=== PATIENT | female | born 1980 | race Caucasian/White ===

== ENCOUNTER 2020-11-23 12:27 | Emergency (ER) | payer OTHER ==
--- NOTE | 2020-11-23 14:15 | ED Physician Documentation ---
History of Present Illness - Stated complaint Stated Complaint: MED REFILL - Chief complaint Chief Complaint: General - Additonal information Additional information: 40-year-old female presents the emergency department requesting a refill of her clonazepam. She reports that she takes 2 mg tablets twice daily as management for her anxiety and she has been on this medication for years. She reports that it was last filled on 15 November. She states she was out shopping yesterday and when she came home she found that the bottle was missing from her purse. She did call her primary care office who told her to come to the ER for a refill. P atient denies shakes or tremors. She is anxious. She has no thoughts of SI. Review of Systems Constitutional: denies: Fever, Chills Eyes: reports: Reviewed and negative Ears: reports: Reviewed and negative Nose: reports: Reviewed and negative Throat: reports: Reviewed and negative Cardiac: reports: Reviewed and negative Respiratory: reports: Reviewed and negative GI: reports: Reviewed and negative : reports: Reviewed and negative Skin: reports: Reviewed and negative Musculoskeletal: reports: Reviewed and negative Neurologic: reports: Reviewed and negative Psychiatric: reports: Anxiety PD PAST MEDICAL HISTORY - Past Medical History Past Medical History: Yes Cardiovascular: None Respiratory: None Endocrine/Autoimmune: None GI: None ER PHYSICIAN: None : None HEENT: None Psych: Depression, Anxiety Musculoskeletal: Chronic back pain Derm: None - Past Surgical History Past Surgical History: Yes Ortho: Spine surgery /ER PHYSICIAN: Tubal ligation HEENT: Tonsil/Adenoidectomy - Present Medications Home Medications: Ambulatory Orders Medication Instructions Recorded Confirmed Amoxicillin 500 mg PO TID #30 capsule 10/11/12 HYDROcod/ACETAM 5/325 [Vicodin 1 - 2 ea PO Q6H PRN #15 tablet 10/11/12 5/325] Naproxen [Naprosyn] 500 mg PO BID PRN 10/11/12 10/11/12 HYDROcod/ACETAM 5/325 [Vicodin 1 - 2 ea PO Q6H PRN #15 tablet 11/15/12 5/325] Penicillin Vk 500 mg PO Q6H 10 Days tablet 11/15/12 HYDROcod/ACETAM 5/325 [Vicodin 1 - 2 ea PO Q6H PRN #15 tablet 11/29/12 5/325] clonazePAM [Clonazepam] 1 mg PO BID #15 11/23/20 - Allergies Allergies/Adverse Reactions: Allergies Allergy/AdvReac Type Severity Reaction Status Date / Time No Known Drug Allergies Allergy Verified 11/23/20 12:33 - Social History Does the pt smoke?: No Smoking Status: Never smoker Does the pt drink ETOH?: No Does the pt have substance abuse?: No - Immunizations Immunizations are current?: Yes - POLST Patient has POLST: No PD ED PE NORMAL - General General: Alert and oriented X 3, No acute distress - HEENT HEENT: PERRL - Cardiac Cardiac: RRR, No murmur - Respiratory Respiratory: Clear bilaterally - Abdomen Abdomen: Normal bowel sounds, Soft, Non tender, Non distended - Back Back: No spinal TTP Results - Vitals Vitals: Vital Signs - 24 hr 11/23/20 12:33 Temperature 36.5 C Heart Rate 78 Respiratory 16 Rate Blood Pressure 120/82 H O2 Saturation 98 Oxygen O2 Source Room air PD MEDICAL DECISION MAKING - ED course Complexity details: reviewed results, re-evaluated patient, d/w patient ED course: 40-year-old female presents the emergency department requesting a refill of her clonazepam. She has been taking it twice daily for years as a management for her anxiety. She is also on buprenorphine. In review of her [facility] it does appear that she fills every month on time clonazepam 1 mg tablets 60. There are no additional refills and she seems very compliant. She has called her prescriber's office and they have declined to refill her benzodiazepine until next month as scheduled. Due to the risk of withdrawal I will prescribe her fifteen 1 mg tablets. I have advised her that if at any point she develops withdrawal she is to return immediately to the ER. I have also advised that she should take only 1 tablet instead of 2 twice a day. Departure - Departure Disposition: 01 Home, Self Care Clinical Impression: Medication refill, Benzodiazepine dependence Condition: Stable Record reviewed to determine appropriate education?: Yes Prescriptions: clonazePAM [Clonazepam] 1 mg PO BID #15 Comments: Delfina I am writing a very limited prescription for your clonazepam. I am writing for 15 tablets. 1 mg to be taken twice a day. Your long-term prescriber should refill your benzodiazepine. It does appear that you are using the medications as prescribed without requiring or requesting early refills. If at any point you develop shakes, have shortness of breath uncontrolled sweating or feel that you are going into withdrawal you must return immediately to the emergency department. Benzodiazepine withdrawal can be life-threatening
[2020-11-23 14:33] VITALS: BP 119/84
== END 2020-11-23 14:35 | disposition home or self-care (01) ==
LOC: ED 12:27
DX: F41.9 Anxiety disorder, unspecified (principal); F13.20 Sedative, hypnotic or anxiolytic dependence, uncomplicated; Z76.0 Encounter for issue of repeat prescription
CPT/HCPCS: 99282; 99283

== ENCOUNTER 2021-12-02 13:37 | Emergency (ER) | payer OTHER ==
[2021-12-02] MEDS ORDERED: tiZANidine 4 MG TABLET PO STA (15:15)
--- NOTE | 2021-12-02 15:25 | ED Physician Documentation ---
History of Present Illness - Stated complaint Stated Complaint: BACK SPASMS - Chief complaint Chief Complaint: Back Pain - History obtained from History obtained from: Patient - History of Present Illness Timing: Today Pain level max: 8 Pain level now: 8 - Additonal information Additional information: Patient is a 41-year-old female who presents to the emergency department complaining of back pain. She states she is normally on tizanidine but ran out last night. Here requesting a refill. Worse with movement, better with rest. She sees Dr. Ramu Church as her primary care provider. Review of Systems Constitutional: denies: Fever, Chills Respiratory: denies: Cough GI: denies: Nausea, Vomiting, Diarrhea : denies: Dysuria, Now EGA Skin: denies: Rash Musculoskeletal: reports: Back pain (Chronic and unchanged. No loss of bowel or bladder control. No numbness or tingling.). denies: Neck pain PD PAST MEDICAL HISTORY - Past Medical History Past Medical History: Yes Cardiovascular: None Respiratory: None Endocrine/Autoimmune: None GI: None SUGAR BOILER: None : None HEENT: None Psych: Depression, Anxiety Musculoskeletal: Chronic back pain Derm: None - Past Surgical History Past Surgical History: Yes Ortho: Spine surgery /SUGAR BOILER: Tubal ligation HEENT: Tonsil/Adenoidectomy - Present Medications Home Medications: Ambulatory Orders Medication Instructions Recorded Confirmed Amoxicillin 500 mg PO TID #30 capsule 10/11/12 HYDROcod/ACETAM 5/325 [Vicodin 1 - 2 ea PO Q6H PRN #15 tablet 10/11/12 5/325] Naproxen [Naprosyn] 500 mg PO BID PRN 10/11/12 10/11/12 HYDROcod/ACETAM 5/325 [Vicodin 1 - 2 ea PO Q6H PRN #15 tablet 11/15/12 5/325] Penicillin Vk 500 mg PO Q6H 10 Days tablet 11/15/12 HYDROcod/ACETAM 5/325 [Vicodin 1 - 2 ea PO Q6H PRN #15 tablet 11/29/12 5/325] clonazePAM [Clonazepam] 1 mg PO BID #15 11/23/20 tiZANidine [Zanaflex] 4 mg PO Q8H PRN #21 tablet 12/02/21 - Allergies Allergies/Adverse Reactions: Allergies Allergy/AdvReac Type Severity Reaction Status Date / Time No Known Drug Allergies Allergy Verified 12/02/21 13:48 - Social History Does the pt smoke?: No Smoking Status: Never smoker Does the pt drink ETOH?: No Does the pt have substance abuse?: No - Immunizations Immunizations are current?: Yes - POLST Patient has POLST: No PD ED PE NORMAL - Vitals Vital signs reviewed: Yes - General General: Alert and oriented X 3, Other (Anxious, tearful) - HEENT HEENT: PERRL, Moist mucous membranes - Neck Neck: Supple, no meningeal sign - Cardiac Cardiac: Other (Tachycardic) - Respiratory Respiratory: No respiratory distress, Clear bilaterally - Abdomen Abdomen: Soft, Non tender, Non distended - Back Back: No spinal TTP, Other (Paraspinal spasm bilateral lower lumbar. No midline tenderness to palpation and percussion.) - Derm Derm: Warm and dry - Extremities Extremities: No edema, No calf tenderness / cord - Neuro Neuro: Alert and oriented X 3, No motor deficit, No sensory deficit, Other (N ormal bilateral lower extremity patellar and ankle jerk reflexes. Normal great toe extension bilaterally. no saddle anesthesia) - Psych Psych: Normal mood, Normal affect Results - Vitals Vitals: Vital Signs - 24 hr 12/02/21 12/02/21 13:46 15:27 Temperature 36.4 C L 36.9 C Heart Rate 139 H 133 H Respiratory 18 16 Rate Blood Pressure 156/117 H 138/106 H O2 Saturation 100 96 Oxygen O2 Source Room air PD MEDICAL DECISION MAKING - ED course Complexity details: considered differential (No cauda equina, no spinal epidural abscess, no fracture, no aortic dissection or evidence of aneursym rupture), d/w patient ED course: 41-year-old female presents the emergency department with ongoing chronic back pain. Ran out of her tizanidine and is requesting a refill. She states she is normally tachycardic. Given a dose of tizanidine here and will prescribe her 1 weeks worth. WEAPONS DESIGNER was checked as well as her recent prescriptions. There is no recent tizanidine prescription and this would be about the time of her normal refill. Patient counseled regarding signs and symptoms for which I believe and urgent re-evaluation would be necessary. Patient with good understanding of and agreement to plan and is comfortable going home at this time This document was made in part using voice recognition software. While efforts are made to proofread this document, sound alike and grammatical errors may occur. Departure - Departure Disposition: 01 Home, Self Care Clinical Impression: Back spasm Condition: Good Instructions: ED Spasm Back No Trauma Follow-Up: Ramu Church MD [Primary Care Provider] - Within 1 week Prescriptions: tiZANidine [Zanaflex] 4 mg PO Q8H PRN #21 tablet PRN Reason: back spasm Comments: Your prescriptions were sent to [facility] in [place]. Please follow-up with your doctor this week for further refills. Return if you worsen. Discharge Date/Time: 12/02/21 15:33
[2021-12-02 15:28] VITALS: BP 138/106
== END 2021-12-02 15:33 | disposition home or self-care (01) ==
LOC: ED 13:37
DX: M62.830 Muscle spasm of back (principal)
CPT/HCPCS: 99282; 99283; A9270

== ENCOUNTER 2022-05-10 17:17 | Emergency (ER) | payer OTHER ==
[2022-05-10 17:26] VITALS: BP 147/102
--- NOTE | 2022-05-10 19:12 | ED Physician Documentation ---
History of Present Illness - Stated complaint Stated Complaint: ANXIETY, RACING HEART - Chief complaint Chief Complaint: MHE - History obtained from History obtained from: Patient - History of Present Illness Timing: Today Pain level max: 0 Pain level now: 0 - Additonal information Additional information: Patient is a 41-year-old female who presents to the emergency department longstanding history of anxiety. She is switching psychiatrists and ran out of her clonazepam today. She takes 1 mg by mouth twice daily. She states that she does not see her new psychiatrist until July. She is trying to get into see her regular doctor next week to talk about a bridge prescription. Patient denies any chest pain or shortness of breath. She feels very anxious. Denies any suicidal or homicidal ideation. Denies any possibility of . Review of Systems Constitutional: denies: Fever, Chills GI: denies: Vomiting Skin: denies: Rash Musculoskeletal: denies: Neck pain, Back pain Neurologic: denies: Headache PD PAST MEDICAL HISTORY - Past Medical History Cardiovascular: None Respiratory: None Endocrine/Autoimmune: None GI: None CROSS COUNTRY COACH: None : None HEENT: None Psych: Depression, Anxiety Musculoskeletal: Chronic back pain Derm: None - Past Surgical History Past Surgical History: Yes Ortho: Spine surgery /CROSS COUNTRY COACH: Tubal ligation HEENT: Tonsil/Adenoidectomy - Present Medications Home Medications: Ambulatory Orders Medication Instructions Recorded Confirmed Amoxicillin 500 mg PO TID #30 capsule 10/11/12 HYDROcod/ACETAM 5/325 [Vicodin 1 - 2 ea PO Q6H PRN #15 tablet 10/11/12 5/325] Naproxen [Naprosyn] 500 mg PO BID PRN 10/11/12 10/11/12 HYDROcod/ACETAM 5/325 [Vicodin 1 - 2 ea PO Q6H PRN #15 tablet 11/15/12 5/325] Penicillin Vk 500 mg PO Q6H 10 Days tablet 11/15/12 HYDROcod/ACETAM 5/325 [Vicodin 1 - 2 ea PO Q6H PRN #15 tablet 11/29/12 5/325] clonazePAM [Clonazepam] 1 mg PO BID #15 11/23/20 tiZANidine [Zanaflex] 4 mg PO Q8H PRN #21 tablet 12/02/21 clonazePAM [Klonopin] 1 mg PO BID PRN #14 tablet 05/10/22 - Allergies Allergies/Adverse Reactions: Allergies Allergy/AdvReac Type Severity Reaction Status Date / Time No Known Drug Allergies Allergy Verified 05/10/22 17:26 - Social History Does the pt smoke?: No Smoking Status: Never smoker Does the pt drink ETOH?: No Does the pt have substance abuse?: No - Immunizations Immunizations are current?: Yes - POLST Patient has POLST: No PD ED PE NORMAL - Vitals Vital signs reviewed: Yes - General General: Alert and oriented X 3, Well developed/nourished, Other (Anxious, tearful) - HEENT HEENT: PERRL, Moist mucous membranes, Pharynx benign - Neck Neck: Supple, no meningeal sign - Cardiac Cardiac: Other (Tachycardic) - Respiratory Respiratory: No respiratory distress, Clear bilaterally - Abdomen Abdomen: Soft, Non tender, Non distended - Derm Derm: Warm and dry - Neuro Neuro: Alert and oriented X 3 - Psych Psych: Normal mood, Normal affect Results - Vitals Vitals: Vital Signs - 24 hr 05/10/22 17:23 Temperature 36.4 C L Heart Rate 142 H Respiratory 16 Rate Blood Pressure 147/102 H O2 Saturation 96 Oxygen O2 Source Room air PD MEDICAL DECISION MAKING - ED course Complexity details: considered differential, d/w patient ED course: We will refill 1 weeks worth of the patient's clonazepam until she can talk to her doctor next week and determine a plan to get her through until she starts with her new psychiatrist. Patient declines any medication here and states she would like a prescription sent to [facility] in [place]. Patient is not suicidal or homicidal. Patient counseled regarding signs and symptoms for which I believe and urgent re-evaluation would be necessary. Patient with good understanding of and agreement to plan and is comfortable going home at this time This document was made in part using voice recognition software. While efforts are made to proofread this document, sound alike and grammatical errors may occur. 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 Please follow-up with your doctor next week to discuss a more permanent plan for your medications. Return if you worsen
== END 2022-05-10 19:22 | disposition home or self-care (01) ==
LOC: ED 17:17
DX: F41.9 Anxiety disorder, unspecified (principal); F13.930 Sedative, hypnotic or anxiolytic use, unspecified with withdrawal, uncomplicated
CPT/HCPCS: 93005; 99282; 99283

== ENCOUNTER 2022-08-05 16:43 | Emergency (ER) | payer OTHER ==
--- OUTSIDE RECORDS SUMMARY | 2022-08-05 17:17 | EXTERNAL MEDICAL SUMMARY RPT | Continuity of Care Document ---
:1980 Author Organization [facility] Address [address] [place] [address] Phone Care Team Providers Name Role Phone Unavailable Unavailable Unavailable Mirella Filleter Enp, Patsy Unavailable Unavailable Allergies No information. Encounters No information. Functional Status No information. Immunizations No information. Medications date description facility 2022-07-16 00:00 metoclopramide hcl All 2022-07-17 00:00 metoclopramide hcl All 2022-07-16 00:00 promethazine All 2022-07-17 00:00 promethazine All 2022-07-16 00:00 buprenorphine-naloxone All 2022-07-17 00:00 buprenorphine-naloxone All 2022-07-16 00:00 metoclopramide hcl All 2022-07-17 00:00 metoclopramide hcl All 2022-07-16 00:00 buprenorphine-naloxone All 2022-07-17 00:00 buprenorphine-naloxone All 2022-07-16 00:00 promethazine All 2022-07-17 00:00 promethazine All 2022-07-16 00:00 clonazepam All 2022-07-17 00:00 clonazepam All 2022-07-16 00:00 clonazepam All 2022-07-17 00:00 clonazepam All 2022-07-16 00:00 gabapentin All 2022-07-17 00:00 gabapentin All 2022-07-16 00:00 metoclopramide hcl All 2022-07-17 00:00 metoclopramide hcl All 2022-07-16 00:00 tizanidine All 2022-07-17 00:00 tizanidine All 2022-07-16 00:00 tizanidine All 2022-07-17 00:00 tizanidine All 2022-07-16 00:00 promethazine All 2022-07-17 00:00 promethazine All 2022-07-16 00:00 buprenorphine-naloxone All 2022-07-17 00:00 buprenorphine-naloxone All 2022-07-16 00:00 gabapentin All 2022-07-17 00:00 gabapentin All 2022-07-16 00:00 metoclopramide hcl All 2022-07-17 00:00 metoclopramide hcl All 2022-07-16 00:00 clonazepam All 2022-07-17 00:00 clonazepam All 2022-07-16 00:00 tizanidine All 2022-07-17 00:00 tizanidine All 2022-07-16 00:00 gabapentin All 2022-07-17 00:00 gabapentin All 2022-07-16 00:00 buprenorphine-naloxone All 2022-07-17 00:00 buprenorphine-naloxone All 2022-07-16 00:00 clonazepam All 2022-07-17 00:00 clonazepam All 2022-07-16 00:00 gabapentin All 2022-07-17 00:00 gabapentin All 2022-07-16 00:00 tizanidine All 2022-07-17 00:00 tizanidine All 2022-07-16 00:00 promethazine All 2022-07-17 00:00 promethazine All Problems date description facility 2022-07-16 00:00 Repeated prescription All 2022-07-16 00:00 Spasm of back muscles All 2022-07-16 00:00 Tachycardia All 2022-07-16 00:00 Hypertensive disorder All 2022-07-16 00:00 Unspecified essential hypertension All 2022-07-16 00:00 Other symptoms referable to back All 2022-07-16 00:00 Essential (primary) hypertension All 2022-07-16 00:00 Muscle spasm of back All 2022-07-16 00:00 Tachycardia, unspecified All 2022-07-16 00:00 Issue of repeat prescriptions All 2022-07-16 00:00 Encounter for issue of repeat prescript ion All Procedures date description facility 2022-07-16 00:00 Visit Code Hold All Results/Labs No information. Social History No information. Vital Signs date measurement value units 2022-07-16 00:00 BMI 31.63 kg/m2 2022-07-16 00:00 BP_diastolic 102 mmHg 2022-07-16 00:00 BP_systolic 138 mmHg 2022-07-16 00:00 heart_rate 112 /min 2022-07-16 00:00 height_metric 154.94 cm 2022-07-16 00:00 height_standard 61 in 2022-07-16 00:00 respiration_rate 18 /min 2022-07-16 00:00 temperature_metric 37.22 C 2022-07-16 00:00 temperature_standard 99 F 2022-07-16 00:00 weight_metric 75.66 kg 2022-07-16 00:00 weight_standard 166.8 lb
[2022-08-05 17:28] VITALS: BP 135/107
--- NOTE | 2022-08-05 17:34 | ED Physician Documentation ---
PD HPI BACK PAIN - Stated complaint Stated Complaint: BACK PX - Chief complaint Chief Complaint: Back Pain - History obtained from History obtained from: Patient - Additional information Additional information: 41-year-old woman with chronic back pain is in the process of switching doctors and has an appointment on Friday, but ran out of her tizanidine which she takes 4 mg 3 times a day. She has no increase in her chronic pain. No weakness, numbness, tingling, saddle anesthesia, fevers, possibility of , or IV drug use. PD PAST MEDICAL HISTORY - Past Medical History Cardiovascular: None Respiratory: None Endocrine/Autoimmune: None GI: None COURT INTERPRETER: None : None HEENT: None Psych: Depression, Anxiety Musculoskeletal: Chronic back pain Derm: None - Past Surgical History Past Surgical History: Yes Ortho: Spine surgery /COURT INTERPRETER: Tubal ligation HEENT: Tonsil/Adenoidectomy - Present Medications Home Medications: Ambulatory Orders Medication Instructions Recorded Confirmed Amoxicillin 500 mg PO TID #30 capsule 10/11/12 HYDROcod/ACETAM 5/325 [Vicodin 1 - 2 ea PO Q6H PRN #15 tablet 10/11/12 5/325] Naproxen [Naprosyn] 500 mg PO BID PRN 10/11/12 10/11/12 HYDROcod/ACETAM 5/325 [Vicodin 1 - 2 ea PO Q6H PRN #15 tablet 11/15/12 5/325] Penicillin Vk 500 mg PO Q6H 10 Days tablet 11/15/12 HYDROcod/ACETAM 5/325 [Vicodin 1 - 2 ea PO Q6H PRN #15 tablet 11/29/12 5/325] clonazePAM [Clonazepam] 1 mg PO BID #15 11/23/20 tiZANidine [Zanaflex] 4 mg PO Q8H PRN #21 tablet 12/02/21 clonazePAM [Klonopin] 1 mg PO BID PRN #14 tablet 05/10/22 tiZANidine [Zanaflex] 4 mg PO Q8H #15 tablet 08/05/22 - Allergies Allergies/Adverse Reactions: Allergies Allergy/AdvReac Type Severity Reaction Status Date / Time No Known Drug Allergies Allergy Verified 08/05/22 17:28 - Social History Does the pt smoke?: No Smoking Status: Never smoker Does the pt drink ETOH?: No Does the pt have substance abuse?: No - Immunizations Immunizations are current?: Yes - POLST Patient has POLST: No PD ED PE NORMAL - Vitals Vital signs reviewed: Yes - General General: Alert and oriented X 3, No acute distress - Back Back: No spinal TTP - Extremities Extremities: Other (The patient has equal and normal Achilles and patellar reflexes bilaterally. Normal sensation in all areas of the legs. Patient denies saddle anesthesia. Normal strength in flexion-extension at the ankles, knees, and flexion of the hips.) - Neuro Neuro: Alert and oriented X 3, Normal speech Results - Vitals Vitals: Vital Signs - 24 hr 08/05/22 17:24 Temperature 36.8 C Heart Rate 115 H Respiratory 16 Rate Blood Pressure 135/107 H O2 Saturation 98 Oxygen O2 Source Room air PD Medical Decision Making - ED course ED course: This patient has seemingly uncomplicated musculoskeletal back pain. The patient has no "red flags." Specifically denies IV drug use, fevers, incontinence, saddle anesthesia. Spinal epidural abscess was considered, given that the patient has no fever, is not diabetic, has no spinal tenderness, does not use IV drugs, and has no bilateral neurologic symptoms, the diagnosis of spinal epidural abscess is considered exceedingly unlikely. Departure - Departure Disposition: Home, Self Care Clinical Impression: Acute exacerbation of chronic low back pain Condition: Good Record reviewed to determine appropriate education?: Yes Instructions: ED Neck Back Pain General Prescriptions: tiZANidine [Zanaflex] 4 mg PO Q8H #15 tablet Comments: I sent the prescription electronically to [facility] in [place]. Return for new or worsening symptoms. Follow-up with your doctor Friday as scheduled.
== END 2022-08-05 17:48 | disposition home or self-care (01) ==
LOC: ED 16:43
DX: Z76.0 Encounter for issue of repeat prescription (principal); M54.50 Low back pain, unspecified; G89.29 Other chronic pain
CPT/HCPCS: 99282; 99284

== ENCOUNTER 2022-09-15 17:26 | Emergency (ER) | payer OTHER ==
[2022-09-15 17:49] VITALS: BP 132/105
--- OUTSIDE RECORDS SUMMARY | 2022-09-15 17:54 | EXTERNAL MEDICAL SUMMARY RPT | Continuity of Care Document ---
:1980 Author Organization [facility] Address [address] [place] [address] Phone Care Team Providers Name Role Phone Unavailable Unavailable Unavailable Mirella Data Entry Supervisor Enp, Patsy Unavailable Unavailable Allergies No information. [...]
[2022-09-15] MEDS ORDERED: clonazePAM 0.5 MG TABLET PO STA (19:09)
--- NOTE | 2022-09-15 19:12 | ED Physician Documentation ---
History of Present Illness - Stated complaint Stated Complaint: ANXIETY - Chief complaint Chief Complaint: General - Additonal information Additional information: 41-year-old female presents to the emergency department requesting a prescript ion for clonazepam. States she has been on it for years. She typically takes 1 mg twice daily. Her psychiatrist recently dropped her. Her primary care doctor gave her 1 month of medication and she took her last dose at 8 PM last night. She is mildly tachycardic and slightly tremulous. She did have an appointment with [facility] on the fifth but has not yet received a psychiatry appoint ment. Review of Systems Constitutional: denies: Fever, Chills Cardiac: reports: Reviewed and negative Respiratory: reports: Reviewed and negative GI: reports: Reviewed and negative : reports: Reviewed and negative Skin: reports: Reviewed and negative PD PAST MEDICAL HISTORY - Past Medical History Cardiovascular: None Respiratory: None Endocrine/Autoimmune: None GI: None PERFORMANCE INSTRUCTOR: None : None HEENT: None Psych: Depression, Anxiety Musculoskeletal: Chronic back pain Derm: None - Past Surgical History Past Surgical History: Yes Ortho: Spine surgery /PERFORMANCE INSTRUCTOR: Tubal ligation HEENT: Tonsil/Adenoidectomy - Present Medications Home Medications: Ambulatory Orders Medication Instructions Recorded Confirmed clonazePAM [Clonazepam] 1 mg PO BID #15 11/23/20 09/15/22 tiZANidine [Zanaflex] 4 mg PO Q8H #15 tablet 08/05/22 09/15/22 Buprenorphine HCl/Naloxone HCl 1 each SL DAILY 09/15/22 09/15/22 [Buprenorphine-Nalox 8-2Mg Film] Gabapentin [Neurontin] 300 mg PO BID 09/15/22 09/15/22 Metoclopramide [Reglan] 10 mg PO ACHS 09/15/22 09/15/22 Promethazine [Phenergan] 25 mg PO Q6H PRN 09/15/22 09/15/22 clonazePAM [Klonopin] 1 mg PO BID #28 tablet 09/15/22 - Allergies Allergies/Adverse Reactions: Allergies Allergy/AdvReac Type Severity Reaction Status Date / Time No Known Drug Allergies Allergy Verified 09/15/22 17:49 - Social History Does the pt smoke?: No Smoking Status: Never smoker Does the pt drink ETOH?: No Does the pt have substance abuse?: No - Immunizations Immunizations are current?: Yes - POLST Patient has POLST: No PD ED PE NORMAL - General General: Alert and oriented X 3, No acute distress - HEENT HEENT: Atraumatic, Moist mucous membranes - Neck Neck: Supple, no meningeal sign - Cardiac Cardiac: RRR, No murmur - Respiratory Respiratory: No respiratory distress, Clear bilaterally - Abdomen Abdomen: Normal bowel sounds, Soft, Non tender - Neuro Neuro: Alert and oriented X 3, elevator installer 2-12 intact Eye Opening: Spontaneous Motor: Obeys Commands Verbal: Oriented GCS Score: 15 - Psych Psych: Normal mood (No SI or HI. Mildly anxious.) Results - Vitals Vitals: Vital Signs - 24 hr 09/15/22 17:40 Temperature 36.8 C Heart Rate 130 H Respiratory 16 Rate Blood Pressure 132/105 H O2 Saturation 100 Oxygen O2 Source Room air PD Medical Decision Making - ED course Complexity details: d/w patient ED course: 41-year-old female presents emergency department requesting a refill of her clonazepam. In review of the [facility] prescribing she appears to be using it appropriately but is unable to now obtain it from her psychiatrist. The risk of benzodiazepine withdrawal exceeds the risk of ordering a short course. The patient has seemingly tried to get seen by [facility]. I have also given her the name of [facility]. A 2-week prescription of clonazepam has been sent to the [facility] in [place]. The usual emergent return precautions were discussed. Departure - Departure Disposition: 01 Home, Self Care Clinical Impression: Medication refill, Chronic prescription benzodiazepine use Condition: Stable Record reviewed to determine appropriate education?: Yes Prescriptions: clonazePAM [Klonopin] 1 mg PO BID #28 tablet Comments: Delfina I have prescribed a very limited amount of the clonazepam for you. We are unable to refill this in the future moving forward. It is essential that you continue to follow with [facility] in order to obtain a psychiatrist for longer-term medication refills. [facility] also has mental health availability and you may want to contact them. Your prescription has been sent to the [facility] in [place]. Return to the ER if you ever have concerns of benzodiazepine withdrawal.
== END 2022-09-15 19:20 | disposition home or self-care (01) ==
LOC: ED 17:26
DX: Z76.0 Encounter for issue of repeat prescription (principal); Z79.899 Other long term (current) drug therapy
CPT/HCPCS: 99281; 99282; A9270

== ENCOUNTER 2022-10-05 14:30 | Emergency (ER) | payer OTHER ==
[2022-10-05 14:36] VITALS: BP 146/104
--- OUTSIDE RECORDS SUMMARY | 2022-10-05 14:38 | EXTERNAL MEDICAL SUMMARY RPT | Continuity of Care Document ---
:1980 Author Organization [facility] Address [address] [place] [address] Phone Care Team Providers Name Role Phone Unavailable Unavailable Unavailable Mirella Help Desk Specialist Enp, Patsy Unavailable Unavailable Allergies No information. [...]
--- NOTE | 2022-10-05 14:43 | ED Physician Documentation ---
History of Present Illness - Stated complaint Stated Complaint: BACK PX/SPASMS - Chief complaint Chief Complaint: Back Pain - History obtained from History obtained from: Patient - History of Present Illness Timing: Today Pain level max: 6 Pain level now: 6 - Additonal information Additional information: Patient is a 42-year-old female with chronic back pain and chronic back spasms. She states that she ran out of her tizanidine yesterday and is having increased spasms today. Unable to get a hold of her primary care provider. No fevers. No chills. No trauma. No loss of bowel or bladder control. Here requesting a refill. Review of Systems Constitutional: denies: Fever : denies: Now EGA Neurologic: denies: Focal weakness, Numbness PD PAST MEDICAL HISTORY - Past Medical History Cardiovascular: None Respiratory: None Endocrine/Autoimmune: None GI: None TEAM SPORTS SALES ASSOCIATE: None : None HEENT: None Psych: Depression, Anxiety Musculoskeletal: Chronic back pain Derm: None - Past Surgical History Past Surgical History: Yes Ortho: Spine surgery /TEAM SPORTS SALES ASSOCIATE: Tubal ligation HEENT: Tonsil/Adenoidectomy - Present Medications Home Medications: Ambulatory Orders Medication Instructions Recorded Confirmed clonazePAM [Clonazepam] 1 mg PO BID #15 11/23/20 09/15/22 tiZANidine [Zanaflex] 4 mg PO Q8H #15 tablet 08/05/22 09/15/22 Buprenorphine HCl/Naloxone HCl 1 each SL DAILY 09/15/22 09/15/22 [Buprenorphine-Nalox 8-2Mg Film] Gabapentin [Neurontin] 300 mg PO BID 09/15/22 09/15/22 Metoclopramide [Reglan] 10 mg PO ACHS 09/15/22 09/15/22 Promethazine [Phenergan] 25 mg PO Q6H PRN 09/15/22 09/15/22 clonazePAM [Klonopin] 1 mg PO BID #28 tablet 09/15/22 Tizanidine HCl 4 mg PO TID #21 tablet 10/05/22 - Allergies Allergies/Adverse Reactions: Allergies Allergy/AdvReac Type Severity Reaction Status Date / Time No Known Drug Allergies Allergy Verified 10/05/22 14:36 - Social History Does the pt smoke?: No Smoking Status: Never smoker Does the pt drink ETOH?: No Does the pt have substance abuse?: No - Immunizations Immunizations are current?: Yes - POLST Patient has POLST: No PD ED PE NORMAL - Vitals Vital signs reviewed: Yes - General General: Alert and oriented X 3, No acute distress - HEENT HEENT: Moist mucous membranes - Neck Neck: Supple, no meningeal sign - Cardiac Cardiac: RRR - Respiratory Respiratory: No respiratory distress, Clear bilaterally - Abdomen Abdomen: Soft, Non tender, Non distended - Back Back: No CVA TTP, No spinal TTP - Derm Derm: Warm and dry - Extremities Extremities: No edema, No calf tenderness / cord - Neuro Neuro: Alert and oriented X 3, Other (Normal bilateral lower extremity patellar and ankle jerk reflexes. Normal great toe extension bilaterally. no saddle anesthesia) - Psych Psych: Normal mood, Normal affect Results - Vitals Vitals: Vital Signs - 24 hr 10/05/22 14:34 Temperature 36.3 C L Heart Rate 126 H Respiratory 20 Rate Blood Pressure 146/104 H O2 Saturation 98 Oxygen O2 Source Room air PD Medical Decision Making - ED course Complexity details: considered differential (No cauda equina, no spinal epidural abscess, no fracture, no aortic dissection or evidence of aneursym rupture), d/w patient ED course: Patient is out of her tizanidine, requesting refill. No changes in her chronic pain. No new neurological symptoms. We will prescribe 1 weeks worth of her tizanidine for her. Patient counseled regarding signs and symptoms for which I believe and urgent re-evaluation would be necessary. Patient with good understanding of and agreement to plan and is comfortable going home at this time This document was made in part using voice recognition software. While efforts are made to proofread this document, sound alike and grammatical errors may occur. Departure - Departure Disposition: 01 Home, Self Care Clinical Impression: Back muscle spasm, Medication refill Condition: Good Instructions: ED Spasm Back No Trauma Follow-Up: PAULETTE BURROUGHS PA-C [Primary Care Provider] - Prescriptions: Tizanidine HCl 4 mg PO TID #21 tablet Comments: Your prescription was sent to [facility] in [place]. Please follow-up with your doctor for further care. Please return if you worsen.
== END 2022-10-05 14:53 | disposition home or self-care (01) ==
LOC: ED 14:30
DX: M62.830 Muscle spasm of back (principal); Z76.0 Encounter for issue of repeat prescription; Z79.899 Other long term (current) drug therapy
CPT/HCPCS: 99282; 99283

== ENCOUNTER 2022-10-12 14:56 | Emergency (ER) | payer OTHER ==
--- NOTE | 2022-10-12 15:12 | ED Physician Documentation ---
History of Present Illness - Stated complaint Stated Complaint: MUSCLE SPAMS - Chief complaint Chief Complaint: Back Pain - History obtained from History obtained from: Patient - Additonal information Additional information: 42-year-old woman who chronically takes 4 mg of tizanidine 3 times a day for muscle spasms in her back. She ran out and is feeling her back spasms and would like a refill. She has no acute complaints. PD PAST MEDICAL HISTORY - Past Medical History Cardiovascular: None Respiratory: None Endocrine/Autoimmune: None GI: None CNMT: None : None HEENT: None Psych: Depression, Anxiety Musculoskeletal: Chronic back pain Derm: None - Past Surgical History Past Surgical History: Yes Ortho: Spine surgery /CNMT: Tubal ligation HEENT: Tonsil/Adenoidectomy - Present Medications Home Medications: Ambulatory Orders Medication Instructions Recorded Confirmed clonazePAM [Clonazepam] 1 mg PO BID #15 11/23/20 09/15/22 tiZANidine [Zanaflex] 4 mg PO Q8H #15 tablet 08/05/22 10/12/22 Buprenorphine HCl/Naloxone HCl 1 each SL DAILY 09/15/22 10/12/22 [Buprenorphine-Nalox 8-2Mg Film] Gabapentin [Neurontin] 300 mg PO BID 09/15/22 09/15/22 Metoclopramide [Reglan] 10 mg PO ACHS 09/15/22 09/15/22 Promethazine [Phenergan] 25 mg PO Q6H PRN 09/15/22 09/15/22 clonazePAM [Klonopin] 1 mg PO BID #28 tablet 09/15/22 Tizanidine HCl 4 mg PO TID #21 tablet 10/05/22 Tizanidine HCl 4 mg PO TID #6 tablet 10/12/22 - Allergies Allergies/Adverse Reactions: Allergies Allergy/AdvReac Type Severity Reaction Status Date / Time No Known Drug Allergies Allergy Verified 10/12/22 15:03 - Social History Does the pt smoke?: No Smoking Status: Never smoker Does the pt drink ETOH?: No Does the pt have substance abuse?: No - Immunizations Immunizations are current?: Yes - POLST Patient has POLST: No PD ED PE NORMAL - Vitals Vital signs reviewed: Yes (Mild resting tachycardia, Modest hypertension) - General General: Alert and oriented X 3, No acute distress - HEENT HEENT: Other (Dilated pupils) - Back Back: No spinal TTP - Neuro Neuro: Alert and oriented X 3, Normal speech Results - Vitals Vitals: Vital Signs - 24 hr 10/12/22 15:00 Temperature 36.5 C Heart Rate 120 H Respiratory 16 Rate Blood Pressure 150/100 H O2 Saturation 99 Oxygen O2 Source Room air PD Medical Decision Making - ED course ED course: 42-year-old woman requesting a refill of tizanidine. Review of the chart shows that this is her fourth visit so far this calendar year for refill, twice for tizanidine and twice for clonazepam. I asked her frankly why she was running out of her medications early and she pointed blame at her primary care PA as being the problem. I discussed with her that given the above we would no longer be able to refill medications especially muscle relaxers and/or scheduled medications and that she needed to work this out with her physician on Friday. Given that it is Friday I gave her prescription for 6 tizanidine to get her through the weekend but again, I discussed with her that going forward we would not be giving refills for medications given the above. Departure - Departure Disposition: Home, Self Care Clinical Impression: Medication refill Condition: Stable Record reviewed to determine appropriate education?: Yes Instructions: ED Spasm Back No Trauma Prescriptions: Tizanidine HCl 4 mg PO TID #6 tablet Comments: I sent your prescription electronically to [facility]. As discussed this is her fourth visit to the emergency department so far since the first of the year for medication refill. All of these visits were for potentially addictive/abusable substances. Going forward the emergency department can no longer provide refills of your medications (especially muscle relaxers and controlled substances), what ever the problem is with your physician please straighten it out on Friday.
--- OUTSIDE RECORDS SUMMARY | 2022-10-12 15:12 | EXTERNAL MEDICAL SUMMARY RPT | Continuity of Care Document ---
Author Name Unknown Address [address] [place] [address] Phone Organization [facility] Address [address] [place] [address] Phone Care Team Providers Care Visual Merchandiser Name Role Phone Unavailable Unavailable Unavailable Mirella Disability Manager Enp, Patsy Unavailable Unavail able Medications date description facility 2022-07-16 00:00 metoclopramide [...] Hypertensive disorder All 2022-07-16 00:00 Unspecified essential hypertens ion All 2022-07-16 00:00 Other symptoms referable to gita [facility] 2022-07-16 00:00 Essential (primary) hypertensio n All 2022-07-16 00:00 Muscle spasm of back All 2022-07-16 00:00 Tachycardia, unspecified All 2022-07-16 00:00 Issue of repeat prescriptions A ll 2022-07-16 00:00 Encounter for issue of repeat p rescription All Procedures date description facility 2022-07-16 00:00 Visit Code Hold All Vital Signs date measurement value units 2022-07-16 [...]
[2022-10-12 15:19] VITALS: BP 130/93
== END 2022-10-12 15:19 | disposition home or self-care (01) ==
LOC: ED 14:56
DX: Z76.0 Encounter for issue of repeat prescription (principal); Z79.899 Other long term (current) drug therapy
CPT/HCPCS: 99282; 99283